=== PATIENT | female | born 1955 | race Caucasian/White ===

== ENCOUNTER → 2023-08-28 18:33 | Outpatient (REF) | payer MEDICARE, BC, SELFPAY | LOC: WDC 18:33 | PROVIDERS: ATTENDING PHYSICIAN Registered Nurse; FAMILY PHYSICIAN Internal Medicine | DX: Z12.31 Encounter for screening mammogram for malignant neoplasm of breast (principal) | CPT/HCPCS: 77063; 77067 ==

== ENCOUNTER → 2023-10-28 17:01 | Outpatient (REF) | payer MEDICARE, BC, SELFPAY | LOC: RAD 17:01 | PROVIDERS: ATTENDING PHYSICIAN Registered Nurse | DX: J18.1 Lobar pneumonia, unspecified organism (principal) | CPT/HCPCS: 71046 ==

== ENCOUNTER → 2025-02-10 09:22 | Outpatient (REF) | payer MEDICARE, BC, SELFPAY | LOC: RAD 09:22 | PROVIDERS: ATTENDING PHYSICIAN Nurse Practitioner Family; FAMILY PHYSICIAN Registered Nurse; REFERRING PHYSICIAN Nurse Practitioner Adult Health | DX: N83.201 Unspecified ovarian cyst, right side (principal); E06.3 Autoimmune thyroiditis; Z86.39 Personal history of other endocrine, nutritional and metabolic disease | CPT/HCPCS: 76536; 76830; 76856 ==